=== PATIENT | male | born 1995 | race Two or more races ===

== ENCOUNTER 2024-07-08 19:06 | Emergency (ER) | payer SELFPAY ==
[~2024-07-08] VITALS: Ht 175.3 cm; Wt 159.2 kg
[2024-07-08 20:49] VITALS: BP 131/65; PULSE 84; RESP 18; TEMP 98.9; O2SAT 97
[2024-07-08 20:52] LABS: COVID19 ANTIGEN SOFIA FIA NEGATIVE (NEGATIVE); Rapid Influenza A Negative (Negative); Rapid Influenza B Negative (Negative)
== END 2024-07-08 21:05 | disposition home or self-care (01) ==
LOC: ER 19:06
DX: Z20.822 Contact with and (suspected) exposure to COVID-19 (principal)
CPT/HCPCS: 36415; 87426; 87804